=== PATIENT | male | born 1970 | race Caucasian/White ===

== ENCOUNTER 2024-08-19 20:26 | Emergency (ER) | payer BC ==
[~2024-08-19] VITALS: Ht 180.3 cm; Wt 94.1 kg
[2024-08-19 22:03] LABS: ALKALINE PHOSPHATASE 101 U/L (46-116); BUN 10 mg/dl (9-23); CHLORIDE 107 mmol/L (98-107); LIPASE 50 U/L (12-53); SGPT/ALT 26 U/L (5-49); TOTAL PROTEIN 7.5 gm/dL (6.0-8.0)
[2024-08-19] MEDS ORDERED: SODIUM CHLORIDE 0.9% 1,000 ML IV SCH (22:15)
[2024-08-19 22:22] LABS: ETHYL ALCOHOL 301.6 mg/dl (<3)
[2024-08-20 00:32] LABS: BILIRUBIN Negative (Negative); BLOOD Negative (Negative); CLARITY Clear (Clear); COLOR Yellow (Yellow); GLUCOSE Negative (Negative); KETONE Negative (Negative); LEUKO ESTERASE Negative (Negative); NITRITE Negative (Negative); PH 6.5 (4.5-8.0); UROBILINOGEN 0.2 E.U./dl (0.0-1.0)
[2024-08-20 00:39] LABS: URINE AMPHETAMINES Negative (1000ng/ml); URINE BARBITURATES Negative (200ng/ml); URINE BENZODIAZEPINES Negative (200ng/ml); URINE CANNABINOIDS (THC) Negative (50ng/ml); URINE COCAINE Negative (300ng/ml); URINE METHADONE Negative (300ng/ml); URINE OPIATES Negative (300ng/ml); URINE PHENCYCLIDINE Negative (25ng/ml)
[2024-08-20] MEDS ORDERED: LORazepam 1 MG TAB PO ONE (00:55)
[2024-08-20] MEDS ORDERED: Ondansetron Hydrochloride 4 MG TAB PO ONE (10:55)
[2024-08-20] MEDS ORDERED: DIAZEPAM 10 MG/2 ML SYR IV ONE (14:10)
[2024-08-20] MEDS ORDERED: LORazepam 2 MG TAB PO ONE (14:15)
== END 2024-08-20 19:48 ==
LOC: ED 20:26
PROVIDERS: Emergency Medicine
DX: F43.23 Adjustment disorder with mixed anxiety and depressed mood (principal); R45.851 Suicidal ideations; F10.10 Alcohol abuse, uncomplicated; Y90.6 Blood alcohol level of 120-199 mg/100 ml